=== PATIENT | female | born 1975 | race American Indian/Alaskan Native ===

== ENCOUNTER 2017-05-15 06:53 | Emergency (ER) | payer OTHER ==
--- NOTE | 2017-05-15 07:47 | Emergency Department Report ---
HPI - General Chief Complaint: Pain General Time Seen by Provider: 05/15/17 07:33 - HPI HPI: Patient says he left ear. She said it feels irritated unclogged that started this morning. She is drainage from ears. Denies any coughing or fever. Denies any shortness of breath. She also complained in that she has a possible insect bite to her right buttocks for 2 days. She is using Neosporin and WITHOUT any relief. She says she is recently when she came back. Her blood pressure is 141/103 with a blood pressure not taken any medication. As any headache, chest pain, dizziness, nausea vomiting. Denies any visual abnormalities. Left is 7 out of 10 intensity right buttock with 6-10 and aching. Right buttocks pain is burning in ED Past Medical Hx - Past Medical History Previous Medical History?: Yes Hx Hypertension: Yes (NO MEDS) Additional medical history: THYROID. OBESITY - Surgical History Past Surgical History?: Yes Hx Cholecystectomy: Yes - Family History Family history: hypertension - Social History Smoking Status: Current Every Day Smoker Substance Use Type: None - Medications Home Medications: Home Medications Medication Instructions Recorded Confirmed Last Taken Type Acyclovir [Zovirax Tab] 800 mg PO TID #7 tab 05/15/17 Unknown Rx Ibuprofen [Motrin] 600 mg PO Q8H PRN #15 tablet 05/15/17 Unknown Rx Neomy/Polymyx B/Hc (Otic) Soln 4 drops OTIC TID #1 bottle 05/15/17 Unknown Rx [Cortisporin (Otic) Soln] ED Review of Systems ROS: Stated complaint: EAR PAIN, INSECT BITE Other details as noted in HPI Comment: All other systems reviewed and negative Constitutional: denies: chills, fever Eyes: denies: eye pain ENT: ear pain. denies: throat pain, congestion Respiratory: no symptoms reported Cardiovascular: denies: chest pain, palpitations, edema, syncope Gastrointestinal: denies: abdominal pain, nausea, vomiting Musculoskeletal: denies: back pain, joint swelling, arthralgia, myalgia Skin: rash Neurological: denies: headache, weakness, numbness, paresthesias, abnormal gait Physical Exam - Physical Exam Vital Signs: Vital Signs 05/15/17 07:20 Temperature 98.4 F Pulse Rate 82 Respiratory 18 Rate Blood Pressure 141/103 O2 Sat by Pulse 98 Oximetry Vital Signs 05/15/17 05/15/17 07:20 08:26 Temperature 98.4 F Pulse Rate 82 Respiratory 18 Rate Blood Pressure 141/103 Blood Pressure 150/92 [Left] O2 Sat by Pulse 98 Oximetry General: This is a 42-year-old female well known from before. No acute distress Physical Exam: Head: Normocephalic atraumatic Mouth: Moist, no pharyngeal exudate or erythema. Uvula is midline and oral airway is patent. No facial swelling. No peritonsillar abscesses. Nose: Congested without erythema. Clear Drainage. Maxillary and frontal sinuses nontender to palpate Neck: Supple, no C-spine tenderness, no tracheal deviation. Nontender to palpate. no adenopathy Ears: Bilateral TMs congested without erythema. Bilateral EAC with redness / swelling ,no drainage. Left tragus tender to palpate Abdomen: Soft, nontender to palpate in all quadrants, normal bowel sounds in all quadrant and negative CVA tenderness bilaterally. Neurological: GCS of 15, alert and oriented 3. Speech is clear and fluid. Normal gait. No motor or sensory deficit. Normal reflexes. No facial drooping. No pronator drift and negative Romberg. Eyes: Bilateral pupils equal and reactive to light, bilateral EOM intact. Bilateral sclera and conjunctiva without injection. Normal accommodation. Lungs: Clear to auscultate bilaterally no rhonchi wheezes or rales. Normal work of breathing extremity; No CCE. +2 pulses. No neurovascular compromise Cardiovascular: S1-S2, regular rate rhythm. No murmurs. Skin: Noted vesicular areas and buttocks 2. Dime size and tender to palpate Psych: Normal mood and behavior ED Course Vital Signs 05/15/17 07:20 Temperature 98.4 F Pulse Rate 82 Respiratory 18 Rate Blood Pressure 141/103 O2 Sat by Pulse 98 Oximetry Vital Signs 05/15/17 05/15/17 07:20 08:26 Temperature 98.4 F Pulse Rate 82 Respiratory 18 Rate Blood Pressure 141/103 Blood Pressure 150/92 [Left] O2 Sat by Pulse 98 Oximetry - Reevaluation(s) Reevaluation #1: 05/15/17 07:58 Patient given Motrin 800 mg po in emergency room. ED Medical Decision Making - Medical Decision Making ED Course: I discussed with patient that she had bilateral otitis externa and Shingles buttocks. Given Motrin 800 mg in the emergency room. I explained diagnosis and treatment plan and she was understanding. Patient discharged home with prescription for Zovirax ,Motrin and Corticosporin otic solution. She is to follow-up with her primary care physician in 2 days and if she does not have she can call [facility] to schedule an appointment. Critical care attestation.: If time is entered above; I have spent that time in minutes in the direct care of this critically ill patient, excluding procedure time. ED Disposition Clinical Impression: Otalgia, left ear, Elevated blood pressure reading with diagnosis of hypertension Shingles rash Qualifiers: Herpes zoster complications: without complications Qualified Code(s): B02.9 - Zoster without complications Otitis externa of both ears Qualifiers: Otitis externa type: unspecified type Chronicity: acute Qualified Code(s): H60.503 - Unspecified acute noninfective otitis externa, bilateral Disposition: TO HOME OR SELFCARE Is pt being admited?: No Does the pt Need Aspirin: No Condition: Stable Instructions: Herpes Zoster (ED), Otitis Externa (ED), Earache (ED), Hypertension (ED), How to Take a Blood Pressure (ED), Heart Healthy Diet (ED), Low Sodium Diet (ED) Additional Instructions: Please keep affected area to right buttock and into Follow-up with primary care in 2-3 days Medication as prescribed Practice good hand hygiene Blood pressure was elevated today for presurgical blood pressure on a daily basis and keep a to take to primary care visit with you. Prescriptions: Acyclovir [Zovirax Tab] 800 mg PO TID #7 tab Ibuprofen [Motrin] 600 mg PO Q8H PRN #15 tablet PRN Reason: Pain Neomy/Polymyx B/Hc (Otic) Soln [Cortisporin (Otic) Soln] 4 drops OTIC TID #1 bottle Referrals: [facility] [Outside] - 2-3 Days Forms: Accompanied Note, Work/School Release Form(ED)
[2017-05-15] MEDS ORDERED: MOTRIN PO ONE (07:50)
[2017-05-15 08:27] VITALS: BP 150/92
== END 2017-05-15 08:37 | disposition home or self-care (01) ==
LOC: ED 06:53
DX: H60.503 Unspecified acute noninfective otitis externa, bilateral (principal); H92.02 Otalgia, left ear; B02.9 Zoster without complications; I10 Essential (primary) hypertension; F17.200 Nicotine dependence, unspecified, uncomplicated
CPT/HCPCS: 99282

== ENCOUNTER 2017-06-15 19:10 | Emergency (ER) | payer SELFPAY ==
[2017-06-16 01:23] VITALS: BP 145/89
[2017-06-16] MEDS ORDERED: MOTRIN PO ONE (01:30)
--- NOTE | 2017-06-16 01:33 | Emergency Department Report ---
Abscess Boil HPI - HPI Chief Complaint: Skin/Abscess/Foreign Body Stated Complaint: RT LEG PAIN Time Seen by Provider: 06/16/17 01:25 Duration: 3 Days Severity: Moderate History: Yes Pain, Yes Previous History, No Fever, No Purulent Drainage, No Numbness, No Foreign Body, No Insect Bite HPI: 42-year-old female presents with complaint of boil to her right inner thigh region. States it is uncomfortable. Has been accumulating over 3 days. Denies any fevers or chills. States she has had these in the past. States it is in right upper inner thigh region no involvement of the vagina. Home Medications: Previous Rx's Medication Instructions Recorded Last Taken Type Acyclovir [Zovirax Tab] 800 mg PO TID #7 tab 05/15/17 Unknown Rx Ibuprofen [Motrin] 600 mg PO Q8H PRN #15 tablet 05/15/17 Unknown Rx Neomy/Polymyx B/Hc (Otic) Soln 4 drops OTIC TID #1 bottle 05/15/17 Unknown Rx [Cortisporin (Otic) Soln] Cephalexin [Keflex] 500 mg PO Q12HR #14 cap 06/16/17 Unknown Rx Ibuprofen [Motrin] 800 mg PO Q8HR PRN #30 tablet 06/16/17 Unknown Rx Sulfamethoxazole/Trimethoprim 1 each PO BID #14 tablet 06/16/17 Unknown Rx [Bactrim DS TAB] Allergies/Adverse Reactions: Allergies Allergy/AdvReac Type Severity Reaction Status Date / Time No Known Allergies Allergy Verified 06/15/17 20:29 ED Review of Systems ROS: Stated complaint: RT LEG PAIN Other details as noted in HPI Constitutional: denies: chills, fever Eyes: denies: eye pain, eye discharge, vision change ENT: denies: ear pain, throat pain Respiratory: denies: cough, shortness of breath, wheezing Cardiovascular: denies: chest pain, palpitations Endocrine: no symptoms reported Gastrointestinal: denies: abdominal pain, nausea, diarrhea Genitourinary: denies: urgency, dysuria, discharge Musculoskeletal: denies: back pain, joint swelling, arthralgia Skin: as per HPI (history of infected abscesses in the past). denies: rash, lesions Neurological: denies: headache, weakness, paresthesias Psychiatric: denies: anxiety, depression Hematological/Lymphatic: denies: easy bleeding, easy bruising ED Past Medical Hx - Past Medical History Previous Medical History?: Yes Hx Hypertension: Yes (NO MEDS) Additional medical history: Hypotthyroid. . OBESITY - Surgical History Past Surgical History?: Yes Hx Cholecystectomy: Yes - Social History Smoking Status: Current Every Day Smoker Substance Use Type: None - Medications Home Medications: Home Medications Medication Instructions Recorded Confirmed Last Taken Type Acyclovir [Zovirax Tab] 800 mg PO TID #7 tab 05/15/17 Unknown Rx Ibuprofen [Motrin] 600 mg PO Q8H PRN #15 tablet 05/15/17 Unknown Rx Neomy/Polymyx B/Hc (Otic) Soln 4 drops OTIC TID #1 bottle 05/15/17 Unknown Rx [Cortisporin (Otic) Soln] Cephalexin [Keflex] 500 mg PO Q12HR #14 cap 06/16/17 Unknown Rx Ibuprofen [Motrin] 800 mg PO Q8HR PRN #30 tablet 06/16/17 Unknown Rx Sulfamethoxazole/Trimethoprim 1 each PO BID #14 tablet 06/16/17 Unknown Rx [Bactrim DS TAB] ED Abscess Boil Physical Exam - Exam General: Vital signs noted. No distress. Alert and acting appropriately. Front/Back of Body, Lg (Color): 1 - 5 cm abscess here Size: 5 cm Exam: Yes Tenderness, Yes Fluctuance, Yes Surrounding Cellulites/Erythema, No Lymphangitis, No Crepitation, No Heart Murmur, No Normal Neurologic Exam, No Normal Circulation I & D Note - I & D Note I & D Note: Area infiltrated with lidocaine 1% with epinephrine good local anesthesia achieved single stab incision made moderate amount of purulent drainage some bleeding. Small amount of iodoform gauze packed into the wound approximately 4 inches of quarter-inch iodoform gauze. Then covered with 4 x 4 gauze. Procedure tolerated well. ED Course Vital Signs 06/15/17 06/16/17 20:23 01:22 Temperature 98.5 F 97.7 F Pulse Rate 80 88 Respiratory 18 18 Rate Blood Pressure 154/100 Blood Pressure 145/89 [Left] O2 Sat by Pulse 100 99 Oximetry Critical care attestation.: If time is entered above; I have spent that time in minutes in the direct care of this critically ill patient, excluding procedure time. ED Medical Decision Making - Medical Decision Making A/P: Right upper inner thigh abscess 1-successful decompression with incision and drainage, wound culture sent 2-short course of Bactrim and Keflex 3-Motrin when necessary ED Disposition Clinical Impression: Abscess Disposition: DC- TO HOME OR SELFCARE Is pt being admited?: No Does the pt Need Aspirin: No Condition: Stable Instructions: Abscess Incision and Drainage (ED), Abscess (ED) Prescriptions: Cephalexin [Keflex] 500 mg PO Q12HR #14 cap Ibuprofen [Motrin] 800 mg PO Q8HR PRN #30 tablet PRN Reason: Pain Sulfamethoxazole/Trimethoprim [Bactrim DS TAB] 1 each PO BID #14 tablet Referrals: [facility] [Provider Group] - 3-5 Days Forms: Accompanied Note, Work/School Release Form(ED) Time of Disposition: 01:31
== END 2017-06-16 02:12 | disposition home or self-care (01) ==
LOC: ED 19:10
DX: L02.415 Cutaneous abscess of right lower limb (principal); I10 Essential (primary) hypertension; F17.200 Nicotine dependence, unspecified, uncomplicated
CPT/HCPCS: 87116; 99282

== ENCOUNTER 2018-07-03 06:53 | Emergency (ER) | payer SELFPAY ==
[2018-07-03 07:31] LABS: Basophils # (Auto) 0.1 K/mm3 (0.0-0.1); Basophils % (Auto) 0.7 % (0.0-1.8); Eosinophils # (Auto) 0.4 K/mm3 (0.0-0.4); Eosinophils % (Auto) 4.8 % (0.0-4.3); Hematocrit 35.6 % (30.3-42.9); Hemoglobin 12.3 gm/dl (10.1-14.3); Lymphocytes # (Auto) 2.5 K/mm3 (1.2-5.4); Lymphocytes % (Auto) 27.2 % (13.4-35.0); Mean Corpuscular HGB Conc 35 % (30-34); Mean Corpuscular Hemoglobin 40 pg (28-32); Mean Corpuscular Volume 115 fl (79-97); Monocytes # (Auto) 0.6 K/mm3 (0.0-0.8); Monocytes % (Auto) 6.5 % (0.0-7.3); Platelet Count 214 K/mm3 (140-440); Red Cell Distribution Width 17.3 % (13.2-15.2)
[2018-07-03] MEDS ORDERED: SOLU-Medrol IV ONE (07:43)
[2018-07-03] MEDS ORDERED: ATROVENT IH ONE (07:43)
[2018-07-03] MEDS ORDERED: TYLENOL PO PRN (07:43)
[2018-07-03] MEDS ORDERED: PROVENTIL IH ONE (07:43)
[2018-07-03] MEDS ORDERED: TORADOL IV ONE (07:43)
[2018-07-03] MEDS ORDERED: NACL 0.9% 500 ML 500 ML IV ONE (07:44)
[2018-07-03 07:45] LABS: BUN/Creatinine Ratio 11; Blood Urea Nitrogen 10 mg/dL (7-17); Calcium 9.9 mg/dL (8.4-10.2); Hemolysis Index 7
--- NOTE | 2018-07-03 07:46 | Emergency Department Report ---
ED Chest Pain HPI - General Chief Complaint: Dyspnea/Respdistress Stated Complaint: CHEST PAIN AND S.O.B Time Seen by Provider: 07/03/18 07:28 Source: patient, RN notes reviewed Mode of arrival: Ambulatory Limitations: No Limitations - History of Present Illness Initial Comments: This is a 43-year-old female who is not known to this provider previously. Her primary care doctor is at the [facility]. Her past medical history includes obesity, hypothyroidism, hypertension, and tobacco consumption. She denies cocaine use, DVT, pulmonary embolus risk factors, does not take oral contraceptives and indicates that she is not today. She presents with a complaint of 2 weeks cough, wheezing, mucus production. She also presents with a complaint of central chest wall pain that started at 6: 00 in the morning today, is constant, does not radiate to the back, arms or neck. There is no vomiting, diaphoresis. There is positive shortness of breath. There is positive cough. There is no leg pain, there is no leg swelling. The chest wall pain is constant, increases with palpation and it decreases with rest. MD Complaint: chest pain, other -: Gradual, hour(s), week(s) Pain Location: other Pain Radiation: none Severity: moderate Quality: pressure Consistency: constant Improves With: rest Worsens With: palpation Other Symptoms: cough Aspirin use within the Past 7 Days: (0) No - Related Data On Oral Contraceptives: No Previous Rx's Medication Instructions Recorded Last Taken Type Acyclovir [Zovirax Tab] 800 mg PO TID #7 tab 05/15/17 Unknown Rx Ibuprofen [Motrin] 600 mg PO Q8H PRN #15 tablet 05/15/17 Unknown Rx Neomy/Polymyx B/Hc (Otic) Soln 4 drops OTIC TID #1 bottle 05/15/17 Unknown Rx [Cortisporin (Otic) Soln] Ibuprofen [Motrin] 800 mg PO Q8HR PRN #30 tablet 06/16/17 Unknown Rx Sulfamethoxazole/Trimethoprim 1 each PO BID #14 tablet 06/16/17 Unknown Rx [Bactrim DS TAB] cephALEXin [Keflex] 500 mg PO Q12HR #14 cap 06/16/17 Unknown Rx Albuterol Sulfate [Proair 90 mcg IH Q4HR PRN #2 aer.pow.ba 07/03/18 Unknown Rx Respiclick] Aspirin [Aspirin BABY CHEW TAB] 81 mg PO QDAY #30 tab.chew 07/03/18 Unknown Rx Benzonatate [Tessalon Perles] 100 mg PO Q8HR PRN #30 capsule 07/03/18 Unknown Rx Ibuprofen [Motrin] 600 mg PO Q8H PRN #30 tablet 07/03/18 Unknown Rx Ipratropium [place] [Atrovent Hfa] 12.9 gm IH Q4HR #2 hfa.aer.ad 07/03/18 Unknown Rx Nicotine [Nicotine Patch] 1 each TD QDAY #30 patch.td24 07/03/18 Unknown Rx predniSONE [Deltasone] 40 mg PO QDAY #8 tab 07/03/18 Unknown Rx Allergies Allergy/AdvReac Type Severity Reaction Status Date / Time No Known Allergies Allergy Verified 06/15/17 20:29 Heart Score - HEART Score History: Slightly suspicious EKG: Normal Age: < 45 Risk factors: 1-2 risk factors Troponin: < normal limit HEART Score: 1 - Critical Actions Critical Actions: 0-3 pts:0.9-1.7%risk of adverse cardiac event.Candidate for discharge ED Review of Systems ROS: Stated complaint: CHEST PAIN AND S.O.B Other details as noted in HPI Constitutional: malaise. denies: fever Eyes: denies: eye discharge Respiratory: cough, shortness of breath Cardiovascular: chest pain, dyspnea on exertion. denies: palpitations, syncope Gastrointestinal: denies: nausea, vomiting Genitourinary: denies: dysuria Musculoskeletal: denies: back pain Skin: denies: lesions Neurological: denies: headache, weakness Psychiatric: anxiety ED Past Medical Hx - Past Medical History Previous Medical History?: Yes Hx Hypertension: Yes (NO MEDS) Additional medical history: Hypotthyroid. . OBESITY - Surgical History Past Surgical History?: Yes Hx Cholecystectomy: Yes - Social History Smoking Status: Current Every Day Smoker Substance Use Type: None - Medications Home Medications: Home Medications Medication Instructions Recorded Confirmed Last Taken Type Acyclovir [Zovirax Tab] 800 mg PO TID #7 tab 05/15/17 Unknown Rx Ibuprofen [Motrin] 600 mg PO Q8H PRN #15 tablet 05/15/17 Unknown Rx Neomy/Polymyx B/Hc (Otic) Soln 4 drops OTIC TID #1 bottle 05/15/17 Unknown Rx [Cortisporin (Otic) Soln] Ibuprofen [Motrin] 800 mg PO Q8HR PRN #30 tablet 06/16/17 Unknown Rx Sulfamethoxazole/Trimethoprim 1 each PO BID #14 tablet 06/16/17 Unknown Rx [Bactrim DS TAB] cephALEXin [Keflex] 500 mg PO Q12HR #14 cap 06/16/17 Unknown Rx Albuterol Sulfate [Proair 90 mcg IH Q4HR PRN #2 aer.pow.ba 07/03/18 Unknown Rx Respiclick] Aspirin [Aspirin BABY CHEW TAB] 81 mg PO QDAY #30 tab.chew 07/03/18 Unknown Rx Benzonatate [Tessalon Perles] 100 mg PO Q8HR PRN #30 capsule 07/03/18 Unknown Rx Ibuprofen [Motrin] 600 mg PO Q8H PRN #30 tablet 07/03/18 Unknown Rx Ipratropium Thatcher [Atrovent Hfa] 12.9 gm IH Q4HR #2 hfa.aer.ad 07/03/18 Unknown Rx Nicotine [Nicotine Patch] 1 each TD QDAY #30 patch.td24 07/03/18 Unknown Rx predniSONE [Deltasone] 40 mg PO QDAY #8 tab 07/03/18 Unknown Rx ED Physical Exam - General Limitations: No Limitations General appearance: alert, in no apparent distress - Head Head exam: Present: atraumatic, normocephalic - Eye Eye exam: Present: normal appearance, EOMI. Absent: nystagmus - ENT ENT exam: Present: normal exam, normal orophraynx, mucous membranes moist, normal external ear exam - Neck Neck exam: Present: normal inspection, full ROM. Absent: tenderness, meningismus - Respiratory Respiratory exam: Present: respiratory distress, wheezes, rhonchi, chest wall tenderness - Cardiovascular Cardiovascular Exam: Present: regular rate, normal rhythm, normal heart sounds. Absent: bradycardia, tachycardia, irregular rhythm, systolic murmur, diastolic murmur, rubs, gallop - GI/Abdominal GI/Abdominal exam: Present: soft, normal bowel sounds. Absent: distended, tenderness, guarding, rigid, pulsatile mass - Extremities Exam Extremities exam: Present: normal inspection, full ROM, normal capillary refill , other (2+ pulses noted in the bilateral upper, lower extremities. Compartments soft. No long bony tenderness. The pelvis is stable.). Absent: tenderness, pedal edema, joint swelling, calf tenderness - Back Exam Back exam: Present: normal inspection, full ROM. Absent: tenderness, CVA tenderness (R), paraspinal tenderness, vertebral tenderness - Neurological Exam Neurological exam: Present: alert, oriented X3, CN II-XII intact, normal gait, other (Extraocular movements intact. Tongue midline. No facial droop. Facial sensation intact to light touch in the V1, V2, V3 distribution bilaterally. 5 and 5 strength in 4 extremities.. Sensation is intact to light touch in 4 extremities.). Absent: motor sensory deficit - Psychiatric Psychiatric exam: Present: normal affect, normal mood - Skin Skin exam: Present: warm, dry, intact, normal color. Absent: rash ED Course Vital Signs 07/03/18 07/03/18 07/03/18 07:10 07:46 07:47 Temperature 98.7 F 98.2 F Pulse Rate 91 H 80 Respiratory 22 16 16 Rate Blood Pressure 161/106 Blood Pressure 142/113 [Right] O2 Sat by Pulse 97 98 98 Oximetry - Reevaluation(s) Reevaluation #1: 07/03/18 10:12 EKG is unchanged 2. Troponin is negative 2. Wheezing is improved. D-dimer is negative. Chest wall pain is improved. The patient feels much improved. She reports readiness for discharge. She will be discharged at this time. Tobacco cessation was encouraged. Return precautions are reviewed. EVITA score - Evita Score Age > 65: (0) No Aspirin use within the Past 7 Days: (0) No 3 or more CAD Risk Factors: (0) No 2 or more Angina events in past 24 hrs: (0) No Known CAD with more than 50% Stenosis: (0) No Elevated Cardiac Markers: (0) No ST Deviation Greater than 0.5mm: (0) No (patient denies family history of coronary artery disease) EVITA Score: 0 ED Medical Decision Making - Lab Data Result diagrams: 07/03/18 07:22 07/03/18 07:22 Vital Signs 07/03/18 07/03/18 07/03/18 07:10 07:46 07:47 Temperature 98.7 F 98.2 F Pulse Rate 91 H 80 Respiratory 22 16 16 Rate Blood Pressure 161/106 Blood Pressure 142/113 [Right] O2 Sat by Pulse 97 98 98 Oximetry Lab Results 07/03/18 07/03/18 Range/Units 07:22 07:22 WBC 9.2 (4.5-11.0) K/mm3 RBC 3.10 L (3.65-5.03) M/mm3 Hgb 12.3 (10.1-14.3) gm/dl Hct 35.6 (30.3-42.9) % MCV 115 H (79-97) fl MCH 40 H (28-32) pg MCHC 35 H (30-34) % RDW 17.3 H (13.2-15.2) % Plt Count 214 (140-440) K/mm3 Lymph % (Auto) 27.2 (13.4-35.0) % [place] % (Auto) 6.5 (0.0-7.3) % Eos % (Auto) 4.8 H (0.0-4.3) % Baso % (Auto) 0.7 (0.0-1.8) % Lymph # 2.5 (1.2-5.4) K/mm3 [place] # 0.6 (0.0-0.8) K/mm3 Eos # 0.4 (0.0-0.4) K/mm3 Baso # 0.1 (0.0-0.1) K/mm3 Seg Neutrophils % 60.8 (40.0-70.0) % Seg Neutrophils # 5.6 (1.8-7.7) K/mm3 Sodium 137 (137-145) mmol/L Potassium 4.4 (3.6-5.0) mmol/L Chloride 95.9 L (98-107) mmol/L Carbon Dioxide 28 (22-30) mmol/L Anion Gap 18 mmol/L BUN 10 (7-17) mg/dL Creatinine 0.9 (0.7-1.2) mg/dL Estimated GFR > 60 ml/min BUN/Creatinine Ratio 11 % Glucose 194 H (65-100) mg/dL Calcium 9.9 (8.4-10.2) mg/dL Troponin T < 0.010 (0.00-0.029) ng/mL - EKG Data -: EKG Interpreted by [facility] EKG shows normal: sinus rhythm, axis, QRS complexes, ST-T waves Rate: normal - EKG Data When compared to previous EKG there are: previous EKG unavailable Interpretation: normal EKG - Radiology Data Radiology results: pending - Medical Decision Making Differential diagnosis, including but not limited to: Costochondritis, pneumonia , bronchitis, pericarditis, myocarditis, pulmonary embolus, acute coronary syndrome Assessment and plan: 43-year-old female who was a tobacco consumer, denies DVT, pulmonary embolus risk factors, is low risk by well's criteria, low risk by evita , heart score, perc negative, with the complaint of 2 weeks coughing, wheezing, shortness of breath and reproducible chest wall pain. She is wheezing. She has reproducible chest wall tenderness. Patient at low risk for major adverse cardiac event. We will check basic laboratory studies, EKG 2, troponin 2, d- dimer, x-ray of the chest, and she with albuterol, Atrovent, steroids, magnesium , and pain medication, and reassess. Critical care attestation.: If time is entered above; I have spent that time in minutes in the direct care of this critically ill patient, excluding procedure time. ED Disposition Clinical Impression: Costochondritis, Bronchitis Disposition: DC-01 TO HOME OR SELFCARE Is pt being admited?: No Does the pt Need Aspirin: No Condition: Stable Instructions: Acute Bronchitis (ED) Additional Instructions: Make every attempt to discontinue tobacco use as soon as possible. Take the albuterol, Atrovent every 4-6 hours as needed for cough, wheezing. Use prednisone, 40 mg daily for the next 5 days. Take the ibuprofen with food over- the-counter/or prescribed every 6 hours as needed for pain. Take the aspirin on a daily basis. Use the transdermal nicotine patch on a daily basis as needed for tobacco cessation. Follow up with the primary care doctor or skiver box toe for chest wall pain within the next 3-5 days. Return to the ER right away with Nubain, for some pain, migration of pain, projectile vomiting, change in mental status, confusion, inability to tolerate liquid feeds. Symptoms of cough, congestion, wheezing, shortness of breath will likely last another 2-3 weeks; this is the natural and expected history of bronchitis, and maybe further prolonged by using tobacco. Referrals: PRIMARY CAREMD [Primary Care Provider] - 3-5 Days [facility] [Provider Group] - 3-5 Days [facility] [Provider Group] - 3-5 Days [facility] [Provider Group] - 3-5 Days Forms: Work/School Release Form(ED)
[2018-07-03 08:17] LABS: INR 0.88 (0.87-1.13); Partial Thromboplastin Time 37.7 Sec. (24.2-36.6)
[2018-07-03] MEDS ORDERED: MAGNESIUM SULFATE 2GM/50ML 2 GM/50 ML BAG IV ONE (08:30)
--- NOTE | 2018-07-03 08:36 | XRay Report ---
ROUTINE CHEST, TWO VIEWS: HISTORY: Chest wall pain, cough. The trachea, heart, mediastinal contour, lung silva and bony thorax are unremarkable. IMPRESSION: Unremarkable chest x-ray.
[2018-07-03 12:32] VITALS: BP 156/103
== END 2018-07-03 12:33 | disposition home or self-care (01) ==
LOC: ED 06:53
DX: M94.0 Chondrocostal junction syndrome [Tietze] (principal); J40 Bronchitis, not specified as acute or chronic; I10 Essential (primary) hypertension; E03.9 Hypothyroidism, unspecified; F17.200 Nicotine dependence, unspecified, uncomplicated; Z90.49 Acquired absence of other specified parts of digestive tract; Z79.899 Other long term (current) drug therapy
CPT/HCPCS: 36415; 71046; 80048; 84484; 84702; 85025; 85379; 85610; 85730; 93005; 93010; 96365; 96375; 99284; J1885; J2930; J3475; J7040

== ENCOUNTER 2020-10-28 02:12 | Emergency (ER) | payer SELFPAY ==
[2020-10-28 02:27] VITALS: BP 157/97
== END 2020-10-28 04:13 | disposition left against medical advice (07) ==
LOC: ED 02:12
DX: R07.89 Other chest pain (principal); Z53.21 Procedure and treatment not carried out due to patient leaving prior to being seen by health care provider
CPT/HCPCS: 93005